=== PATIENT | female | born 1950 | race Caucasian/White ===

== ENCOUNTER 2019-07-04 06:53 | Emergency (ER) | payer MEDICARE, OTHER ==
[2019-07-04 07:48] LABS: ALT (SGPT) 13 U/L (8-55); AST (SGOT) 30 U/L (5-34); Albumin 3.5 g/dL (3.4-4.8); Alkaline Phosphatase 60 U/L (40-110); Anion Gap 17 mmol/L (10-20); BUN (Urea Nitrogen) 16 mg/dL (9.8-20.1); Bilirubin, Total 0.5 mg/dL (0.2-1.2); Calc. Creatinine Clearance 0 mL/min (70-130); Calcium 8.7 mg/dL (7.8-10.44); Carbon Dioxide 23 mmol/L (23-31); Chloride 93 mmol/L (98-107); Estimated GFR-MDRD 47; Globulin 3.4 g/dL (2.4-3.5); Glucose 125 mg/dL (80-115); Lipase 28 U/L (8-78); Potassium 5.2 mmol/L (3.5-5.1); Protein, Total 6.9 g/dL (6.0-8.3); Sodium 128 mmol/L (136-145)
[2019-07-04 07:50] LABS: #Eosinphils 0.1 thou/uL (0.0-0.7); #Lymphocytes 0.6 thou/uL (1.20-3.40); #Monocytes 0.6 thou/uL (0.11-0.59); #Neutrophils 6.4 thou/uL (1.40-6.50); %Basophils 0.4 % (0.0-1.0); %Eosinophils 0.9 % (0.0-10.0); %Monocytes 8.2 % (0.0-10.0); %Neutrophils 82.6 % (42.0-75.0); Hemoglobin 11.2 g/dL (12.0-16.0); Mean Corpuscular HGB CONC 32.8 g/dL (32.0-36.0); Mean Corpuscular Hemoglobin 29.3 pg (27.0-31.0); Mean Corpuscular Volume 89.3 fL (78.0-98.0); Platelet Count 666 thou/uL (130-400); RBC Distribution Width 12.5 % (11.5-14.5); Red Blood Cell (RBC) Count 3.84 mill/uL (4.20-5.40); White Blood Cell (WBC) Count 7.7 thou/uL (4.8-10.8)
[2019-07-04 07:54] LABS: Bacteria/HPF None Seen HPF (None Seen); Bilirubin Negative (Negative); Blood, Urine Negative (Negative); Clarity Clear (Clear); Glucose, Urine (Dipstick) Normal (Negative); Leukocyte Negative Leu/uL (Negative); Nitrite Negative (Negative); Protein, Urine (Dipstick) 50 mg/dL (Neg-Trace); Squamous Epithelial 0-3 HPF (0-3); Urobilinogen Normal mg/dL (Less than 2)
[2019-07-04] MEDS ORDERED: Multivitamins, Adult 10 ML, Thiamine HCl 100 MG, Folic Acid 1 MG in Dextrose 5 %-0.45 %... IV SCH (08:30)
--- NOTE | 2019-07-04 11:15 | CT ---
CT ABDOMEN AND PELVIS WITH ORAL AND IV CONTRAST: HISTORY: Diarrhea and nausea. The patient has a history of right breast cancer 18 years ago and had bilateral mastectomy in July 2002. COMPARISON: 02/01/2006. FINDINGS: There are mild dependent changes in the lung bases. The patient is post cholecystectomy and hysterec erlin. There is a large amount of free fluid in the abdomen and pelvis. There is nodular thickening of the omentum. There is lymphadenopathy in the retroperitoneum and pelvis. There are complex kisha s in the pelvis, likely ovarian. The conglomerate measures about 10 cm. There is probable involveme nt of the superior wall of the urinary bladder. There resultant left-sided moderate to severe hydron ephrosis and mild right-sided hydronephrosis due to the pelvic masses. The liver, spleen, pancreas, and adrenal glands appear normal. There are vascular calcifications without evidence of aneurysmal dilatation of the abdominal aorta. There are degenerative changes in the spine. There are couple of small sclerotic foci in the T11 and T12 vertebral bodies. These are not seen on the previous exam and could represent sclerotic. A sma ll hiatal hernia is present. IMPRESSION: Findings are suspicious for ovarian malignancy with metastatic disease versus metastatic disease due to breast cancer. Is the patient BRCA positive? Discussed over the telephone with ER physician, Dr. Lionel Muñoz at 9:44 a.m. INDU BALTAZAR POS: TRISTON
[2019-07-04] MEDS ORDERED: Iopamidol 370 76% 100 ML VIAL ONE (11:55)
== END 2019-07-04 16:39 | disposition short-term general hospital (02) ==
LOC: ERS 06:53
DX: E87.5 Hyperkalemia (principal); C79.60 Secondary malignant neoplasm of unspecified ovary; R18.8 Other ascites; E11.9 Type 2 diabetes mellitus without complications; E03.9 Hypothyroidism, unspecified; I10 Essential (primary) hypertension; Z79.84 Long term (current) use of oral hypoglycemic drugs; Z79.899 Other long term (current) drug therapy
CPT/HCPCS: 74177; 80053; 81003; 81015; 83605; 83690; 85025; 96361; 96365; 96366; J3411; J7042; Q9967

== ENCOUNTER → 2019-07-14 | Day surgery (SDC) | payer MEDICARE, OTHER ==
[2019-07-11 10:19] VITALS: BMI 31.7
[~2019-07-14] MED LIST: Acetaminophen 500 MG TAB ONE; Bupivacaine 0.25% HCL 30 ML VIAL ONE; Fentanyl 100 MCG/2 ML VIAL ONE; Ketorolac Tromethamine 30 MG/ML VIAL ONE; Lidocaine 1% w/Epinephrine 1:100K 20 ML VIAL ONE; PROPOFOL 200 MG/20 ML VIAL ONE; PROPOFOL 60 ML ONE; traMADol HCl 50 MG TAB ONE
--- NOTE | 2019-07-14 13:01 | RAD ---
EXAM: Chest 2 views: HISTORY: Preoperative radiograph COMPARISON: None. FINDINGS: There is a normal-sized cardiomediastinal silhouette. There is no evidence of consolidation, mass, or pleural effusion. The bones are unremarkable. IMPRESSION: No evidence of acute cardiopulmonary disease
[2019-07-14 13:34] LABS: Hemoglobin 10.3 g/dL (12.0-16.0); Mean Corpuscular HGB CONC 31.3 g/dL (32.0-36.0); Mean Corpuscular Hemoglobin 27.7 pg (27.0-31.0); Mean Corpuscular Volume 88.6 fL (78.0-98.0); Platelet Count 703 thou/uL (130-400); RBC Distribution Width 13.2 % (11.5-14.5); Red Blood Cell (RBC) Count 3.71 mill/uL (4.20-5.40); White Blood Cell (WBC) Count 6.9 thou/uL (4.8-10.8)
[2019-07-14 13:35] LABS: #Eosinphils 0.1 thou/uL (0.0-0.7); #Lymphocytes 0.7 thou/uL (1.20-3.40); #Monocytes 0.6 thou/uL (0.11-0.59); #Neutrophils 5.4 thou/uL (1.40-6.50); %Basophils 0.5 % (0.0-1.0); %Eosinophils 1.6 % (0.0-10.0); %Lymphocytes 10.2 % (21.0-51.0); %Monocytes 8.8 % (0.0-10.0); Mean Platelet Volume 6.7 fL (7.4-10.4)
[2019-07-14 14:01] LABS: Anion Gap 20 mmol/L (10-20); BUN (Urea Nitrogen) 11 mg/dL (9.8-20.1); Calc. Creatinine Clearance 89 mL/min (70-130); Calcium 8.6 mg/dL (7.8-10.44); Carbon Dioxide 21 mmol/L (23-31); Chloride 97 mmol/L (98-107); Estimated GFR-MDRD 70; Glucose 88 mg/dL (80-115); Potassium 4.7 mmol/L (3.5-5.1); Sodium 133 mmol/L (136-145)
--- NOTE | 2019-07-14 16:29 | RAD ---
EXAM: Single view of the chest HISTORY: Mediport placement COMPARISON: 08/12/2002 FINDINGS: Single view of the chest shows a normal sized cardiomediastinal silhouette. There is eleva tion the right hemidiaphragm. There is a left subclavian Mediport with its tip in the superior vena cava. No pneumothorax is seen. There is no evidence of consolidation, mass, or pleural effusion. The bones are unremarkable. IMPRESSION: Status post Mediport placement without evidence of complication.
--- NOTE | 2019-07-14 16:31 | EKG ---
Test Reason : PREOP Blood Pressure : / mmHG Vent. Rate : 100 BPM Atrial Rate : 100 BPM P-R Int : 120 ms QRS Dur : 072 ms QT Int : 352 ms P-R-T Axes : 065 003 042 degrees QTc Int : 454 ms Normal sinus rhythm Low voltage QRS Cannot rule out Anterior infarct (cited on or before 24-JUL-2002) Abnormal ECG When compared with ECG of 24-JUL-2002 09:16, Vent. rate has increased BY [address] Emeterio BERNAL ([id number]) on 07/14/2019 4:31:28 PM Referred By: KAILYN Confirmed By:DR. Emeterio BERNAL
--- NOTE | 2019-07-14 21:02 | OP ---
DATE OF PROCEDURE: 07/14/2019 PREOPERATIVE DIAGNOSIS: Intraabdominal malignancy with extensive. POSTOPERATIVE DIAGNOSIS: Intraabdominal malignancy with extensive. PROCEDURE PERFORMED: Placement of left subclavian low-profile power compatible MediPort. ANESTHESIA: Total intravenous anesthesia with local using 0.25% Marcaine with epinephrine. INDICATIONS: The patient is a 68-year-old white female. She had recently developed severe ascites. She has undergone surgery for diagnostic purposes. The exact etiology of her malignancy is still pending at this time. MediPort placement has been requested for chemotherapy administration. She has a history of right breast cancer and right chest wall radiation. She has had a prior left subclavian MediPort. I recommend placement of another left-sided port to avoid the radiated tissue. DESCRIPTION OF OPERATION: Informed consent was obtained. The patient was taken to the operating room where total intravenous anesthesia was obtained with the patient in supine position. Left periclavicular area was prepped with ChloraPrep and draped in sterile fashion. Local anesthetic was infiltrated and a large-gauge needle was passed under the clavicle in the subclavian vein. Guidewire was passed through the needle and fluoroscopically confirmed to enter the superior vena cava. Additional local anesthetic was infiltrated and transverse incision was created based on needle insertion site. A subcutaneous pocket was dissected inferiorly. Introducer dilator was passed over the guidewire under fluoroscopic guidance. The guidewire and dilator were removed, and the catheter was passed through the introducer. The tip of the catheter was positioned at the atriocaval junction and the catheter was trimmed to the appropriate length and secured to the locking hub of the MediPort. The port was then placed in the subcutaneous pocket where it was secured to the pectoral fascia with 2 interrupted sutures of 3-0 Prolene. The incision was then closed in layers with 3-0 and 4-0 Monocryl. Additional local anesthetic was infiltrated. The port was cannulated with a Richardson needle and it aspirated blood freely and was flushed with heparinized saline. Dermabond was placed externally on the skin incision. There were no complications. Blood loss was negligible. The patient tolerated the procedure well and was taken to recovery room in stable condition. FINDINGS: A low-profile port was placed as this best suited her body habitus. It was placed uneventfully on the first pass into the left subclavian vein. The anatomy was unremarkable and blood loss was negligible. Patient tolerated the procedure well and was taken to recovery room in stable condition. Job ID: [id number]
== END ==
LOC: SDC 12:11
PROVIDERS: ATTEND Specialist
PROC: 02HV33Z Insertion of Infusion Device into Superior Vena Cava, Percutaneous Approach (ICD-10-PCS; principal; 2019-07-14)
DX: C76.2 Malignant neoplasm of abdomen (principal); I10 Essential (primary) hypertension; Z79.84 Long term (current) use of oral hypoglycemic drugs; Z79.899 Other long term (current) drug therapy; Z85.3 Personal history of malignant neoplasm of breast; Z91.040 Latex allergy status
CPT/HCPCS: 36415; 71045; 71046; 80048; 85025; 93005; 93010; C1788; J0690; J1642; J1885; J2704; J3010; S0020

== ENCOUNTER 2019-07-25 11:23 | Day surgery (SDC) | payer MEDICARE ==
[2019-07-24 15:24] VITALS: BMI 30.9
[2019-07-25 11:50] LABS: #Eosinphils 0.1 thou/uL (0.0-0.7); #Lymphocytes 0.8 thou/uL (1.20-3.40); #Monocytes 0.6 thou/uL (0.11-0.59); #Neutrophils 3.9 thou/uL (1.40-6.50); %Basophils 0.4 % (0.0-1.0); %Eosinophils 1.6 % (0.0-10.0); %Lymphocytes 15.4 % (21.0-51.0); %Monocytes 10.5 % (0.0-10.0); %Neutrophils 72.2 % (42.0-75.0); Hemoglobin 11.4 g/dL (12.0-16.0); Mean Corpuscular Hemoglobin 28.6 pg (27.0-31.0); Mean Corpuscular Volume 86.6 fL (78.0-98.0); Mean Platelet Volume 6.7 fL (7.4-10.4); Platelet Count 491 thou/uL (130-400); RBC Distribution Width 13.7 % (11.5-14.5); Red Blood Cell (RBC) Count 3.97 mill/uL (4.20-5.40); White Blood Cell (WBC) Count 5.4 thou/uL (4.8-10.8)
[2019-07-25 11:57] LABS: PTT 32.7 SEC (22.9-36.1); Prothrombin Time 13.5 SEC (12.0-14.7)
[2019-07-25 14:15] VITALS: BP 139/64; TEMP 97.4
--- NOTE | 2019-07-25 16:40 | ULT ---
ULTRASOUND-GUIDED PARACENTESIS THERAPEUTIC: DATE: 07/25/2019 HISTORY: 68-year-old female with symptomatic ascites: Abdominal distention due to malignant ascites. TECHNIQUE: Signed informed consent obtained. A four-quadrant survey of abdomen performed. Site selected for puncture: Overlying skin prepared and draped in usual sterile fashion. 25-gauge needle used to apply buffered lidocaine superficially and deeply. 5 Spanish Yueh catheter with stylette advanced into the pocket of free intraperitoneal fluid. After drainage, the Yueh catheter was removed. Patient tolerated the procedure well. No complications. FINDINGS: Volume of ascites prior to procedure:moderate. Volume of ascites fluid in the drainage pocket after drainage:small. Volume of ascites fluid drained:6100 mL Appearance of ascites fluid: Straw-colored, nonhemorrhagic IMPRESSION: Successful therapeutic paracentesis, with drainage of 6.1 L of ascites fluid.
== END 2019-07-25 13:55 | disposition home or self-care (01) ==
LOC: ULT 11:23
PROVIDERS: ATTEND Internal Medicine Hematology & Oncology
PROC: 0W9G3ZZ Drainage of Peritoneal Cavity, Percutaneous Approach (ICD-10-PCS; principal; 2019-07-25)
DX: C56.9 Malignant neoplasm of unspecified ovary (principal); R18.0 Malignant ascites; E78.5 Hyperlipidemia, unspecified; Z79.899 Other long term (current) drug therapy; Z85.3 Personal history of malignant neoplasm of breast; Z91.041 Radiographic dye allergy status
CPT/HCPCS: 36415; 49083; 80053; 82248; 83615; 84100; 84550; 85025; 85610; 85730; 86304

== ENCOUNTER 2019-08-04 12:20 | Day surgery (SDC) | payer MEDICARE ==
[2019-08-04] MEDS ORDERED: Lidocaine 1% PF 5 ML VIAL ONE (13:57)
--- NOTE | 2019-08-04 14:54 | ULT ---
Sonographic guided paracentesis HISTORY: Recurrent ascites. FINDINGS: After explaining the procedure and answering all questions, sonographic survey shows a larg e amount of free fluid throughout the abdomen. Sterile technique, buffered local anesthesia, sonographic guidance, and a right lateral approach were used to carefully advance a 19-gauge Yueh nee dle and catheter into the free fluid. The catheter was left to drain a total volume of 6.3 L clear dark yellow liquid. Catheter was removed with minimal fluid remaining. Patient tolerated the procedur e well and was dismissed in good condition. IMPRESSION: Technically successful sonographic guided paracentesis.
[2019-08-04 15:03] VITALS: BP 156/75; TEMP 97.5
[2019-08-04 15:09] VITALS: BMI 30.9
== END 2019-08-04 14:45 | disposition home or self-care (01) ==
LOC: ULT 12:20
PROVIDERS: ATTEND Internal Medicine Hematology & Oncology
PROC: 0W9G3ZZ Drainage of Peritoneal Cavity, Percutaneous Approach (ICD-10-PCS; principal; 2019-08-04)
DX: R18.8 Other ascites (principal); C56.9 Malignant neoplasm of unspecified ovary; E89.0 Postprocedural hypothyroidism; M81.0 Age-related osteoporosis without current pathological fracture; E78.5 Hyperlipidemia, unspecified; Z85.3 Personal history of malignant neoplasm of breast; Z79.84 Long term (current) use of oral hypoglycemic drugs; Z79.899 Other long term (current) drug therapy; Z91.040 Latex allergy status
CPT/HCPCS: 49083; J2001

== ENCOUNTER 2019-08-11 10:19 | Day surgery (SDC) | payer MEDICARE ==
[2019-08-11] MEDS ORDERED: Sodium Bicarbonate 2.5 MEQ/5 ML VIAL ONE (10:48)
[2019-08-11] MEDS ORDERED: Lidocaine 1% PF 5 ML VIAL ONE (10:48)
--- NOTE | 2019-08-11 12:22 | ULT ---
Sonographic guided paracentesis HISTORY: Ascites. FINDINGS: After splenic procedure and answering all questions, sonographic survey shows a large amoun t of free fluid throughout the abdomen. Sterile technique, buffered local anesthesia, sonographic guidance, and a right lateral approach were used to carefully advance a 19-gauge Yueh needle and cath eter into the free fluid. Catheter was left to drain a total volume of 6.4 L clear yellow liquid. Catheter was removed with min imal fluid remaining. Patient tolerated the procedure well and was dismissed in good condition. IMPRESSION : : Technically successful sonographic guided paracentesis.
[2019-08-11 13:14] VITALS: BP 160/83; TEMP 98.2
== END 2019-08-11 11:50 | disposition home or self-care (01) ==
LOC: ULT 10:19
PROVIDERS: ATTEND Internal Medicine Hematology & Oncology
PROC: 0W9G3ZZ Drainage of Peritoneal Cavity, Percutaneous Approach (ICD-10-PCS; principal; 2019-08-11)
DX: R18.8 Other ascites (principal); C56.9 Malignant neoplasm of unspecified ovary; M81.0 Age-related osteoporosis without current pathological fracture; E89.2 Postprocedural hypoparathyroidism; E78.5 Hyperlipidemia, unspecified; Z85.3 Personal history of malignant neoplasm of breast; Z91.040 Latex allergy status
CPT/HCPCS: 49083; J2001

== ENCOUNTER 2019-08-18 08:19 | Day surgery (SDC) | payer MEDICARE ==
[2019-08-15 12:51] VITALS: BMI 30.9
[2019-08-18] MEDS ORDERED: Sodium Bicarbonate 2.5 MEQ/5 ML VIAL ONE (08:30)
[2019-08-18] MEDS ORDERED: Lidocaine 1% PF 5 ML VIAL ONE (08:30)
[2019-08-18 10:23] VITALS: BP 132/79; TEMP 98.1
--- NOTE | 2019-08-18 10:40 | ULT ---
Ultrasound-guided paracentesis: HISTORY: Patient with history of breast cancer. Recurrent ascites FINDINGS: Informed consent obtained prior to the procedure. Preprocedural imaging demonstrated intrap eritoneal free fluid. An area was marked in the Right lower quadrant , and then meticulously prepped and draped in normal s terile fashion and anesthetized with 1% buffered lidocaine. With direct sonographic guidance, a 19-gauge needle and 5 Bengali LegitTradereh catheter were advanced into the abdomen. After the return of fluid, the catheter was advanced, and the needle was removed. Approximately 6 L of clear straw-colored fluid was aspirated. The introducer sheath was removed, and hemostasis was achieved with direct pressure. A dry sterile dressing was placed. The patient tolerated the procedure well and without immediate complication. IMPRESSION: Technically successful ultrasound-guided paracentesis.
== END 2019-08-18 09:50 | disposition home or self-care (01) ==
LOC: ULT 08:19
PROVIDERS: ATTEND Internal Medicine Hematology & Oncology
PROC: 0W9G3ZZ Drainage of Peritoneal Cavity, Percutaneous Approach (ICD-10-PCS; principal; 2019-08-18)
DX: R18.8 Other ascites (principal); C56.9 Malignant neoplasm of unspecified ovary; E78.5 Hyperlipidemia, unspecified; M81.0 Age-related osteoporosis without current pathological fracture; E89.2 Postprocedural hypoparathyroidism; Z85.3 Personal history of malignant neoplasm of breast; Z79.899 Other long term (current) drug therapy; Z91.040 Latex allergy status
CPT/HCPCS: 49083; J2001

== ENCOUNTER 2019-08-25 12:32 | Day surgery (SDC) | payer MEDICARE ==
[2019-08-25] MEDS ORDERED: Sodium Bicarbonate 2.5 MEQ/5 ML VIAL ONE (13:01)
--- NOTE | 2019-08-25 13:46 | ULT ---
Sonogram abdomen limited HISTORY: Recurrent ascites. Ovarian cancer with metastatic disease. FINDINGS: Exam was initially scheduled as a sonographic guided paracentesis. Survey shows much less f luid than on previous exams. Moderate amount. Patient reports no significant discomfort. Given the sonographic findings and patient discomfort and discussion, paracentesis was not performed. After chemotherapy treatment on Sunday, patient will evaluate for the need for drainage at the end of this week. If it is needed, we will see her again later this week for drainage, probably on . Otherwise, patient will return next Sunday for reevaluation and potential paracentesis.
[2019-08-25 13:49] VITALS: BP 151/83; TEMP 97.8
== END 2019-08-25 13:15 | disposition home or self-care (01) ==
LOC: ULT 12:32
PROVIDERS: ATTEND Internal Medicine Hematology & Oncology
DX: R18.8 Other ascites (principal); C56.9 Malignant neoplasm of unspecified ovary; C79.9 Secondary malignant neoplasm of unspecified site; M81.0 Age-related osteoporosis without current pathological fracture; E89.2 Postprocedural hypoparathyroidism; Z85.3 Personal history of malignant neoplasm of breast; Z79.899 Other long term (current) drug therapy; Z91.040 Latex allergy status
CPT/HCPCS: 76705

== ENCOUNTER 2019-09-17 14:39 | Outpatient (CLI) | payer MEDICARE ==
[2019-09-17 15:08] VITALS: BMI 28.3
[2019-09-17] MEDS ORDERED: Acetaminophen 500 MG TAB PO SCH (15:15)
[2019-09-17] MEDS ORDERED: diphenhydrAMINE 25 MG CAP PO SCH (15:15)
[2019-09-17 22:40] VITALS: BP 169/79; TEMP 98.2
[2019-09-17 23:30] LABS: Hemoglobin 10.4 g/dL (12.0-16.0); Mean Corpuscular HGB CONC 32.9 g/dL (32.0-36.0); Mean Corpuscular Hemoglobin 28.6 pg (27.0-31.0); Mean Corpuscular Volume 86.8 fL (78.0-98.0); Platelet Count 160 thou/uL (130-400); RBC Distribution Width 17.2 % (11.5-14.5); Red Blood Cell (RBC) Count 3.63 mill/uL (4.20-5.40); White Blood Cell (WBC) Count 0.6 thou/uL (4.8-10.8)
[2019-09-17 23:56] LABS: Band 4 % (5-11); Lymphocytes 50 % (21-51); MDiff Complete? YES; Monocytes 20 % (0-10); Neutrophil 24 % (42-75); Reactive Lymphocytes 2 % (0-10)
== END 2019-09-17 22:55 | disposition home or self-care (01) ==
LOC: BICCT 14:39 → 3SE 14:55 → BICCT 22:55
PROVIDERS: ATTEND Internal Medicine Hematology & Oncology
DX: D64.9 Anemia, unspecified (principal); D69.6 Thrombocytopenia, unspecified
CPT/HCPCS: 36430; 85025; 86850; 86900; 86901; 86920; P9016; 36415; J1642; Q0163

== ENCOUNTER 2019-09-26 09:22 | Outpatient (CLI) | payer MEDICARE ==
[2019-09-26] MEDS ORDERED: Iopamidol-370 76% 500 ML 1 ML ONE (09:52)
--- NOTE | 2019-09-26 14:42 | CT ---
CT ABDOMEN AND PELVIS WITH ORAL AND IV CONTRAST: 09/26/19 HISTORY: Ovarian cancer. Patient is on chemotherapy. Malignant neoplasm of unspecified ovary. Personal history of malignant neoplasm of breast. Breast cancer history 18 years ago. Treated with mastectomy and andrew motherapy. COMPARISON: 07/04/19. FINDINGS: The lung bases are unremarkable. A large amount of free fluid in the abdomen and pelvis is again see n with nodular thickening of the omentum. The patient is post cholecystectomy and hysterectomy. The r etroperitoneal lymphadenopathy shows mild improvement with the left para-aortic lymph nodes measuring 15 mm compared to 2 cm on the previous exam. The complex masses in the pelvis are again seen with th e conglomerate stable and measuring about 10 cm. There is continued probable involvement of the super ior wall of the urinary bladder. The right sided mild hydronephrosis is resolved. There is moderate l eft sided hydronephrosis. The liver, spleen, pancreas, and adrenal glands appear normal. Vascular calcifications are present wi thout evidence of aneurysmal dilatation of the abdominal aorta. Degenerative changes in the spine ar e again seen. The couple of small sclerotic foci in the T11 and T12 vertebral bodies are stable. No n ew osseous lesions are seen. IMPRESSION: Improvement in the left para-aortic lymphadenopathy and hydronephrosis since the previous study. Nella madison of the exam is otherwise stable. POS: VAUGHN
== END 2019-09-26 09:23 | disposition home or self-care (01) ==
LOC: BICCT 09:22
PROVIDERS: ATTEND Internal Medicine Hematology & Oncology
DX: C56.9 Malignant neoplasm of unspecified ovary (principal); R59.0 Localized enlarged lymph nodes; N13.30 Unspecified hydronephrosis; Z85.3 Personal history of malignant neoplasm of breast
CPT/HCPCS: 74177; 82565; Q9967

== ENCOUNTER 2019-10-30 11:06 | Day surgery (SDC) | payer MEDICARE ==
[2019-10-30] MEDS ORDERED: Sodium Chloride 0.9% 20 ML ONE (11:30)
[2019-10-30] MEDS ORDERED: Acetaminophen 500 MG TAB PO SCH (12:45)
[2019-10-30] MEDS ORDERED: diphenhydrAMINE 25 MG CAP PO SCH (12:45)
[2019-10-30 13:56] VITALS: TEMP 98
[2019-10-30 16:12] VITALS: BP 146/70
== END 2019-10-30 16:13 | disposition home or self-care (01) ==
LOC: ONC/OP 11:06
PROVIDERS: ATTEND Internal Medicine Hematology & Oncology
PROC: 30233N1 Transfusion of Nonautologous Red Blood Cells into Peripheral Vein, Percutaneous Approach (ICD-10-PCS; principal; 2019-10-30)
DX: D64.9 Anemia, unspecified (principal); D69.6 Thrombocytopenia, unspecified; Z91.040 Latex allergy status
CPT/HCPCS: 36430; 86850; 86900; 86901; J1642; P9016; Q0163

== ENCOUNTER 2020-01-29 08:07 | Outpatient (CLI) | payer MEDICARE ==
--- NOTE | 2020-01-29 09:28 | CT ---
EXAM: CT ABDOMEN AND PELVIS HISTORY: Ovarian cancer. Breast cancer. Patient is undergoing chemotherapy. Abdominal carcinomatosis. COMPARISON: 09/26/2019 Procedure: Multiple contiguous axial images were obtained and a CT of the abdomen and pelvis with IV contrast. C oronal reformats were performed. FINDINGS: Lower Chest: No suspicious masses or consolidation. Vessels: Atherosclerosis of a nonaneurysmal aorta. Heart: Normal heart size. No significant pericardial effusion. Minimal coronary artery calcification. Abdomen: Portal vein:Patent. Gallbladder: Surgically absent. Liver: within normal limits. Pancreas: within normal limits. Spleen: within normal limits. Adrenals: within normal limits. Kidneys: Symmetric enhancement. No obstructive uropathy. Peritoneum: There is no fluid collection or free air. Small amount of fluid tracks along both paracol ic gutters. There is a decrease in the overall amount of intraperitoneal free fluid. Previously noted stippled appearance of the omentum has decreased. There are still residual areas of steepling o f the omentum suggesting residual carcinomatosis. There are enlarged lymph nodes in the right lower quadrant mesentery. [employer] Supervisor enlarged lymph node measures 0.6 x 0.4 cm. Bowel: Gastric mucosa, duodenum and multiple normal caliber small bowel loops are identified. Normal ileocecal junction. Normal caliber appendix. Scattered fecal material in a nondistended, nondilated colon. No evidence of a colonic mucosal abnormality. Mesentery and Retroperitoneum: Scattered abdominal mesenteric lymph nodes are noted. There is also ev idence of lymphadenopathy along the gastrohepatic ligament. [employer] Supervisor lymph node measures 0.9 x 1.0 cm. There is also asymmetric fullness along the left periaortic region, similar to the previous examination. Just inferior to the left renal artery and vein, there is abnormal soft tissue density measuring 1.6 x 1.7 cm. Abdominal Wall: within normal limits. Pelvis: Reproductive Organs: Uterus is not appreciated. There is a solid and cystic mass present in the midli ne of the pelvis, currently measuring 3.4 x 3.5 cm (previously measuring 3.8 x 4.0 cm). There is an additional focus of mixed solid and cystic attenuation in the midline of the pelvis measuring 4.4 x 4 .8 cm (previously measuring 5.1 x 4.6 cm). There is a predominantly cystic lesion in the right adnexa measuring 4.1 x 3.8 cm (previously measuring 5.5 x 4.8 cm). There is an adjacent solid compone nt which was also noted on the previous exam. This solid component measures at least 3.9 x 2.3 cm (previously measuring 4.1 x 2.1 cm). Pelvis: Trace amount of free fluid. Enlarged bilateral external iliac lymph nodes. Left external todd c lymph node measures 1.6 x 1.0 cm. Left external iliac lymph node measures 1.6 x 0.8 cm. Bladder: Slightly decreased but persistent bladder wall thickening. There is enhancement along the se ken margin of the dome of the bladder. Bones: within normal limits. IMPRESSION: 1. Partial response to therapy. The degree of peritoneal fluid, which is presumed to be malignant, williamson s decreased. There is still stippling of the mesentery suggesting omental carcinomatosis. There are also scattered enlarged mesenteric lymph nodes which are presumed to be metastatic. 2. Redemonstration of extensive multifocal solid and cystic masses in the midline and left aspect of the pelvis. The overall size of the region of malignancy has slightly decreased. There is redemonstration of bilateral external iliac lymphadenopathy which is also decreased. 3. Interval resolution of previously noted left-sided hydronephrosis. 4. Redemonstration of essentially stable left periaortic lymphadenopathy. Transcribed Date/Time: 01/29/2020 9:40 AM
== END 2020-01-29 08:08 | disposition home or self-care (01) ==
LOC: SCSCT 08:07
PROVIDERS: ATTEND Internal Medicine Hematology & Oncology
DX: C56.9 Malignant neoplasm of unspecified ovary (principal); C78.6 Secondary malignant neoplasm of retroperitoneum and peritoneum; R59.0 Localized enlarged lymph nodes; N13.30 Unspecified hydronephrosis
CPT/HCPCS: 74177; 80053; 82248; 82378; 83615; 84100; 84550; 86304

== ENCOUNTER 2020-06-16 08:28 | Outpatient (CLI) | payer MEDICARE ==
--- NOTE | 2020-06-16 09:44 | CT ---
CT of the abdomen and pelvis: 06/16/2020 COMPARISON: 04/06/2020 HISTORY: Peritoneal malignancy, history of breast cancer TECHNIQUE: Axial CT imaging obtained at 5 mm intervals from the lung bases through the pubic symphysi s with intravenous and oral contrast. Coronal and sagittal reformatted imaging obtained. FINDINGS: There is a trace new left pleural effusion. Imaged lung bases appear grossly unremarkable o therwise. Cholecystectomy clips are present. There is minimal fluid adjacent to the anterior aspect of the right lobe of the liver at the level of the dome, new. No hepatic lesion. Spleen, pancreas, and adrenal glands appear stable. There is a tiny hypodense lesion associated with the midpole of the right kidney posteriorly. Right k idney otherwise unremarkable. There is mild new left-sided hydronephrosis. The prior examination performed 04/06/2020 demonstrated a mass within the left hemipelvis/left adnexa l region which is no longer present suggesting interval surgical resection as the patient reports a history of surgery in March 2020. There is a soft tissue density posterior to the vaginal cuff on the left measuring 2.2 cm in AP dimension, suggesting residual small volume tumor in this region. There is extensive diverticulosis without evidence for diverticulitis. No evidence for bowel obstruct ion is seen. There is extensive increased linear density with associated nodularity involving the lining of the pe ritoneal cavity diffusely consistent with the provided history of peritoneal carcinomatosis. When compared to the 04/06/2020 examination the abnormality within the omentum anterior to and inferior to the transverse colon appears grossly unchanged. There is continued nodularity and thickening within the bilateral paracolic gutters and along the ant erior pararenal space, left greater than right. Of note, this thickening and nodularity is slightly worsened along the course of the left paracolic gutter and along the anterior margin of the left lisa renal space. There is also slight worsening of soft tissue density and nodularity along the right paracolic gutter suggesting a degree of worsening peritoneal carcinomatosis. There are multiple mildl y enlarged lymph nodes within the gastrohepatic ligament, which appears similar when compared to the prior examination. There is soft tissue density within the retroperitoneum, particularly the left para-aortic region whi ch is best seen on axial image 40, measuring approximately 1.7 cm in AP dimension, previously measuring approximately 1.6 cm in AP dimension. There is soft tissue nodularity along the course of t he left ureter, which is slightly worsened when compared to the prior examination as well. This likely accounts for the new mild left-sided hydronephrosis. Left inguinal lymphadenopathy measures up to 1.5 cm in short axis dimension, increased from 8-9 mm on the prior exam. No right inguinal adenopathy. Multiple scattered mildly enlarged mesenteric lymph nodes are noted. Review of the osseous structures demonstrates no worrisome lytic or blastic bone lesions. No acute os seous abnormality is evident. IMPRESSION: Interval resection of left pelvic mass. Evidence of peritoneal carcinomatosis is noted, w hich appears to have slightly worsened when compared to the prior examination as detailed above. The nodularity along the course of the left ureter is slightly more prominent in there is new mild le ft-sided hydronephrosis. New trace fluid in the left pleural space and adjacent to the right lobe of the liver. Results relayed to Dr. Chew via [place] [facility] 9:35 AM 06/16/2020
[2020-06-16] MEDS ORDERED: Iopamidol-370 76% 500 ML 1 ML ONE (10:26)
== END 2020-06-16 08:29 | disposition home or self-care (01) ==
LOC: BICCT 08:28
PROVIDERS: ATTEND Internal Medicine Hematology & Oncology
DX: C48.2 Malignant neoplasm of peritoneum, unspecified (principal); C56.9 Malignant neoplasm of unspecified ovary; N28.89 Other specified disorders of kidney and ureter; R19.00 Intra-abdominal and pelvic swelling, mass and lump, unspecified site; N13.30 Unspecified hydronephrosis; Z85.3 Personal history of malignant neoplasm of breast
CPT/HCPCS: 74177; 82565; Q9967

== ENCOUNTER 2020-09-16 09:07 | Outpatient (CLI) | payer MEDICARE | END 2020-09-16 09:08 | disposition home or self-care (01) | LOC: CT 09:07 | PROVIDERS: ATTEND Internal Medicine Hematology & Oncology | DX: C56.9 Malignant neoplasm of unspecified ovary (principal); D70.1 Agranulocytosis secondary to cancer chemotherapy; C50.811 Malignant neoplasm of overlapping sites of right female breast; Z85.3 Personal history of malignant neoplasm of breast; C78.6 Secondary malignant neoplasm of retroperitoneum and peritoneum; N13.30 Unspecified hydronephrosis | CPT/HCPCS: 74177 ==

== ENCOUNTER 2021-03-28 09:05 | Outpatient (CLI) | payer MEDICARE ==
[2021-03-28] MEDS ORDERED: Iopamidol-370 76% 500 ML 1 ML ONE (10:31)
== END 2021-03-28 09:06 | disposition home or self-care (01) ==
LOC: BICCT 09:05
PROVIDERS: ATTEND Internal Medicine Hematology & Oncology
DX: C56.9 Malignant neoplasm of unspecified ovary (principal); Z85.3 Personal history of malignant neoplasm of breast; D70.1 Agranulocytosis secondary to cancer chemotherapy; C50.811 Malignant neoplasm of overlapping sites of right female breast; J90 Pleural effusion, not elsewhere classified; J98.11 Atelectasis; C78.6 Secondary malignant neoplasm of retroperitoneum and peritoneum; R59.0 Localized enlarged lymph nodes; N13.30 Unspecified hydronephrosis
CPT/HCPCS: 74177; Q9967

== ENCOUNTER 2021-11-25 09:34 | Outpatient (CLI) | payer MEDICARE ==
[~2021-11-25 09:34] MED LIST changes: -Acetaminophen 500 MG TAB ONE; -Bupivacaine 0.25% HCL 30 ML VIAL ONE; -Fentanyl 100 MCG/2 ML VIAL ONE; +ISOVUE-370 76%-LOCM 1 ML ONE; -Ketorolac Tromethamine 30 MG/ML VIAL ONE; -Lidocaine 1% w/Epinephrine 1:100K 20 ML VIAL ONE; -PROPOFOL 200 MG/20 ML VIAL ONE; -PROPOFOL 60 ML ONE; -traMADol HCl 50 MG TAB ONE
== END 2021-11-25 09:35 | disposition home or self-care (01) ==
LOC: BICCT 09:34
PROVIDERS: ATTEND Internal Medicine Hematology & Oncology
DX: C56.9 Malignant neoplasm of unspecified ovary (principal); C50.811 Malignant neoplasm of overlapping sites of right female breast; J90 Pleural effusion, not elsewhere classified; N13.30 Unspecified hydronephrosis; K63.89 Other specified diseases of intestine; R59.0 Localized enlarged lymph nodes
CPT/HCPCS: 74177; 82565; Q9966

== ENCOUNTER 2022-01-18 12:28 | Inpatient (IN) | payer MEDICARE ==
[2022-01-18] MEDS ORDERED: Ondansetron PF 4 MG/2 ML Vial IVP PRN (13:34)
[2022-01-18] MEDS ORDERED: Acetaminophen 325 MG TAB PO PRN (13:34)
[2022-01-18 16:00] LABS: ALT (SGPT) 12 U/L (8-55); AST (SGOT) 28 U/L (5-34); Albumin 3.8 g/dL (3.4-4.8); Alkaline Phosphatase 52 U/L (40-110); Anion Gap 19 mmol/L (10-20); BUN (Urea Nitrogen) 21 mg/dL (9.8-20.1); Bilirubin, Total 0.4 mg/dL (0.2-1.2); Calc. Creatinine Clearance 34 mL/min (70-130); Calcium 9.9 mg/dL (7.8-10.44); Carbon Dioxide 23 mmol/L (23-31); Chloride 94 mmol/L (98-107); Estimated GFR 33; Globulin 3.1 g/dL (2.4-3.5); Glucose 84 mg/dL (80-115); Potassium 4.2 mmol/L (3.5-5.1); Protein, Total 6.9 g/dL (5.8-8.1); Sodium 132 mmol/L (136-145)
[2022-01-18 16:15] LABS: Anisocytosis SLIGHT = 6-15 cells (100X) (0-5/hpf); Band 5 % (5-11); Burr Cells SLIGHT = 2-5 cells (100X) (0-1/hpf); Hemoglobin 10.7 g/dL (12.0-16.0); Lymphocytes 28 % (21-51); MDiff Complete? YES; Mean Corpuscular HGB CONC 34.2 g/dL (32.0-36.0); Mean Corpuscular Volume 90.4 fL (78.0-98.0); Mean Platelet Volume 7.7 fL (7.4-10.4); Monocytes 16 % (0-10); Neutrophil 34 % (42-75); Ovalocytes SLIGHT = 2-5 cells (100X) (0-1/hpf); Platelet Count 327 thou/uL (130-400); Platelet Morphology Comment Appears Adequate; Polychromasia SLIGHT = 2-3 cells (100X) (0-2/hpf); RBC Distribution Width 18.5 % (11.5-14.5); Reactive Lymphocytes 16 % (0-10); Red Blood Cell (RBC) Count 3.45 mill/uL (4.20-5.40); Tear Drops SLIGHT = 2-5 cells (100X) (0-1/hpf); White Blood Cell (WBC) Count 2.3 thou/uL (4.8-10.8)
[2022-01-18 17:38] LABS: SARS-CoV-2 NAA Rapid Test Not Detected (NotDetected)
[2022-01-18] MEDS: Ondansetron ODT 4 MG TAB PO PRN (19:03)
[2022-01-18] MEDS: Magnesium Oxide 400 MG TAB PO SCH (20:39)
[2022-01-18 22:50] LABS: Bacteria/HPF None Seen HPF (None Seen); Bilirubin Negative (Negative); Blood, Urine Negative (Negative); Clarity Clear (Clear); Glucose, Urine (Dipstick) Normal (Negative); Ketone, Urine 10 mg/dL (Negative); Leukocyte 75 Leu/uL (Negative); Nitrite Negative (Negative); Protein, Urine (Dipstick) 30 mg/dL (Neg-Trace); RBC/HPF 0-3 HPF (0-3); Specific Gravity, Urine 1.023 (1.002-1.036); Squamous Epithelial 0-3 HPF (0-3); Urobilinogen Normal mg/dL (Less than 2); WBC/HPF 21-50 HPF (0-3)
[2022-01-19 06:52] LABS: Hemoglobin 9.8 g/dL (12.0-16.0); Mean Corpuscular HGB CONC 33.5 g/dL (32.0-36.0); Mean Corpuscular Hemoglobin 30.7 pg (27.0-31.0); Mean Corpuscular Volume 91.6 fL (78.0-98.0); Mean Platelet Volume 7.7 fL (7.4-10.4); Platelet Count 309 thou/uL (130-400); RBC Distribution Width 18.6 % (11.5-14.5); Red Blood Cell (RBC) Count 3.18 mill/uL (4.20-5.40); White Blood Cell (WBC) Count 2.3 thou/uL (4.8-10.8)
[2022-01-19 07:20] LABS: Anion Gap 16 mmol/L (10-20); BUN (Urea Nitrogen) 20 mg/dL (9.8-20.1); Calc. Creatinine Clearance 36 mL/min (70-130); Calcium 9.3 mg/dL (7.8-10.44); Carbon Dioxide 25 mmol/L (23-31); Chloride 97 mmol/L (98-107); Estimated GFR 35; Glucose 75 mg/dL (80-115); Potassium 3.9 mmol/L (3.5-5.1); Sodium 134 mmol/L (136-145)
[2022-01-19 08:09] VITALS: BP 116/64; TEMP 97.5
[2022-01-19] MEDS ORDERED: traMADol HCl 50 MG TAB PO PRN ×2 (08:37→08:54)
[2022-01-19] MEDS ORDERED: Levothyroxine Sodium 100 MCG TAB PO SCH (09:00)
[2022-01-19] MEDS ORDERED: cefTRIAXone\\ROCEPHIN 1 GM in Sodium Chloride 0.9% 100 ML IVPB SCH (09:00)
[2022-01-19] MEDS ORDERED: Liothyronine Sodium 5 MCG TAB PO SCH (09:00)
[2022-01-19] MEDS: Magnesium Oxide 400 MG TAB PO SCH (10:43)
[2022-01-19 11:25] LABS: Band 4 % (5-11); Lymphocytes 37 % (21-51); MDiff Complete? YES; Monocytes 21 % (0-10); Neutrophil 37 % (42-75); Platelet Morphology Comment Appears Adequate; RBC Morphology Normal
[2022-01-19 13:35] LABS: Magnesium 1.1 mg/dL (1.6-2.6)
[2022-01-19 13:38] VITALS: BMI 25.1
[2022-01-19] MEDS ORDERED: Magnevist 469MG/ML 20 ML VIAL ONE (14:35)
[2022-01-19] MEDS: Ondansetron ODT 4 MG TAB PO PRN (15:31)
[2022-01-19] MEDS ORDERED: Dexamethasone 4 mg/ml Vial SLOW IVP SCH (17:15)
== END 2022-01-19 18:55 | disposition home or self-care (01) | DRG 55 ==
LOC: MSONC 12:28
PROVIDERS: ADMIT Internal Medicine; ATTEND Internal Medicine
DX: C79.32 Secondary malignant neoplasm of cerebral meninges (principal); C79.89 Secondary malignant neoplasm of other specified sites; C79.11 Secondary malignant neoplasm of bladder; E03.9 Hypothyroidism, unspecified; Z20.822 Contact with and (suspected) exposure to COVID-19; N18.9 Chronic kidney disease, unspecified; Z66 Do not resuscitate; C50.919 Malignant neoplasm of unspecified site of unspecified female breast; Z88.8 Allergy status to other drugs, medicaments and biological substances; Z91.040 Latex allergy status; Z90.49 Acquired absence of other specified parts of digestive tract; Z90.710 Acquired absence of both cervix and uterus
CPT/HCPCS: 36415; 70553; 76770; 80048; 80053; 81001; 82248; 83615; 83735; 84100; 84550; 85025; A9579; J0696; J1100; J1642; J3490; Q0162; U0002